=== PATIENT | female | born 1940 | race African-American/Black ===

== ENCOUNTER 2024-01-26 09:49 | Inpatient (IN) | payer OTHER ==
[~2024-01-26] VITALS: Ht 152.4 cm; Wt 59.0 kg
[2024-01-26 09:58] VITALS: BP 95/40; PULSE 66; RESP 20; TEMP 98; O2SAT 99
[2024-01-26 10:40] LABS: BASOPHILS # (AUTO) 0.1 K/uL (0.00-0.22); BASOPHILS % (AUTO) 1.1 % (0.0-2.0); EOSINOPHILS # (AUTO) 0.1 K/uL (0-0.4); EOSINOPHILS % (AUTO) 2.7 % (0.0-4.0); HEMATOCRIT 35.1 % (36-48); HEMOGLOBIN 11.7 g/dL (12.0-16.0); LYMPHOCYTES # (AUTO) 1.8 K/uL (2.5-16.5); LYMPHOCYTES % (AUTO) 33.6 % (20.5-51.1); MEAN CORPUSCULAR HEMOGLOBIN 29 pg (27-31); MEAN CORPUSCULAR HGB CONC 33 g/dL (33-37); MEAN CORPUSCULAR VOLUME 86.4 fL (80-94); MONOCYTES # (AUTO) 0.3 K/uL (0.8-1.0); NEUTROPHILS # (AUTO) 3.1 K/uL (1.8-7.7); NEUTROPHILS % (AUTO) 57.6 % (42.2-75.2); PLATELET COUNT (AUTO) 363 K/uL (140-450); RED BLOOD CELL COUNT(AUTO) 4.07 MIL/uL (4.20-5.40); RED CELL DISTRIBUTION WIDTH 14.4 % (11.6-13.7); WHITE BLOOD COUNT (AUTO) 5.5 K/uL (4.8-10.8)
[2024-01-26 10:47] LABS: CALCIUM 8.9 mg/dL (8.5-10.1); CARBON DIOXIDE 26.9 mmol/L (21-32); CHLORIDE 102 mmol/L (98-107); CREATININE 1.2 mg/dL (0.6-1.3); GLUCOSE 99 mg/dL (74-106); SODIUM SERUM 137 mmol/L (136-145); UREA NITROGEN, BLOOD 23 mg/dL (7-18)
[2024-01-26 10:48] LABS: POTASSIUM 2.9 mmol/L (3.5-5.1)
[2024-01-26] MEDS: POTASSIUM CHLORIDE 10 MEQ TABER PO ONE (10:58)
[2024-01-26] MEDS ORDERED: GABA300C (11:54)
[2024-01-26] MEDS ORDERED: AMLO-3 PO (11:54)
[2024-01-26] MEDS ORDERED: HYDR-3293 PO (11:54)
[2024-01-26] MEDS ORDERED: ACET-9525 PO (11:54)
[2024-01-26] MEDS ORDERED: APIX2.5 PO (11:54)
[2024-01-26] MEDS ORDERED: METO50TE63 PO (11:54)
[2024-01-26] MEDS ORDERED: MECL-231 PO (11:54)
[2024-01-26] MEDS ORDERED: TRAZ-471 PO (11:54)
[2024-01-26] MEDS ORDERED: FERR-15 PO (11:54)
[2024-01-26] MEDS ORDERED: PANT40EC56 PO (11:54)
[2024-01-26] MEDS ORDERED: POLYETHYLENE GLYCOL 17 GM/PKT PO PRN (12:20)
[2024-01-26] MEDS ORDERED: MELATONIN 3 MG TAB PO PRN (12:20)
[2024-01-26] MEDS ORDERED: HYDROcodone/APAP 5/325 MG 1 TAB TAB PO PRN (12:20)
[2024-01-26] MEDS ORDERED: ONDANSETRON 4 MG/2 ML VIAL IVP PRN (12:20)
[2024-01-26] MEDS ORDERED: MORPHINE SULFATE 2 MG/ML SYR IVP PRN (12:20)
[2024-01-26 13:00] VITALS: RESP 15; RESP 20; O2SAT 99
[2024-01-26 16:00] VITALS: BP 126/79; PULSE 60; RESP 15; TEMP 98.2; O2SAT 99
[2024-01-26 17:33] VITALS: PULSE 60
[2024-01-26 20:00] VITALS: BP 142/65; PULSE 59; PULSE 62; RESP 17; RESP 19; TEMP 98; O2SAT 98
[2024-01-27] VITALS (7 sets, daily range): BP systolic 105–169; BP diastolic 49–85; PULSE 51–70; RESP 16–19; TEMP 96.6–98.7; O2SAT 98–100
[2024-01-27] MEDS: POTASSIUM CHLORIDE 10 MEQ TABER PO PRN (05:49)
[2024-01-27 06:37] LABS: BASOPHILS # (AUTO) 0.1 K/uL (0.00-0.22); BASOPHILS % (AUTO) 0.9 % (0.0-2.0); EOSINOPHILS # (AUTO) 0.2 K/uL (0-0.4); HEMATOCRIT 33.3 % (36-48); HEMOGLOBIN 11.2 g/dL (12.0-16.0); LYMPHOCYTES # (AUTO) 2.4 K/uL (2.5-16.5); LYMPHOCYTES % (AUTO) 34.2 % (20.5-51.1); MEAN CORPUSCULAR HEMOGLOBIN 29 pg (27-31); MEAN CORPUSCULAR HGB CONC 34 g/dL (33-37); MONOCYTES # (AUTO) 0.4 K/uL (0.8-1.0); MONOCYTES % (AUTO) 5.1 % (1.7-9.3); NEUTROPHILS % (AUTO) 56.8 % (42.2-75.2); PLATELET COUNT (AUTO) 366 K/uL (140-450); RED BLOOD CELL COUNT(AUTO) 3.87 MIL/uL (4.20-5.40); RED CELL DISTRIBUTION WIDTH 14.4 % (11.6-13.7); WHITE BLOOD COUNT (AUTO) 7.1 K/uL (4.8-10.8)
[2024-01-27 07:24] LABS: ALANINE AMINOTRANSFERASE 19 U/L (12-78); ALKALINE PHOSPHATASE 64 U/L (50-136); ANION GAP 12.4 (8-16); ASPARTATE AMINOTRANSFERASE 16 U/L (15-37); CARBON DIOXIDE 24.9 mmol/L (21-32); CHLORIDE 102 mmol/L (98-107); CREATININE 0.9 mg/dL (0.6-1.3); GLUCOSE 95 mg/dL (74-106); MAGNESIUM 1.7 mg/dL (1.8-2.4); PHOSPHORUS 3.4 mg/dL (2.5-4.9); POTASSIUM 3.3 mmol/L (3.5-5.1); SODIUM SERUM 136 mmol/L (136-145); TOTAL BILIRUBIN 0.5 mg/dL (0.0-1.0); TOTAL PROTEIN, SERUM 7.1 g/dL (6.4-8.2); UREA NITROGEN, BLOOD 18 mg/dL (7-18)
[2024-01-27] MEDS: ECOTRIN 81 MG TABEC PO SCH (09:02)
[2024-01-27] MEDS: MAG SULF 2000 MG/WATER PREMIX 50 ML IV PRN (09:05)
[2024-01-27] MEDS: POTASSIUM CHLORIDE 10 MEQ TABER PO SCH (12:12)
[2024-01-27] MEDS: amLODIPine 5 MG TAB PO SCH (14:10)
[2024-01-27] MEDS ORDERED: APIXABAN 2.5 MG TAB PO SCH (21:00)
[2024-01-27] MEDS: traZODone 50 MG TAB PO SCH (21:03)
[2024-01-28] VITALS: BP 133/62; PULSE 73; RESP 16; TEMP 97.8; O2SAT 100
[2024-01-28] MEDS: ACETAMINOPHEN 325 MG TAB PO PRN (00:27)
[2024-01-28 04:00] VITALS: BP 138/64; PULSE 82; RESP 16; TEMP 97.6; O2SAT 99
[2024-01-28 06:23] LABS: BASOPHILS # (AUTO) 0.1 K/uL (0.00-0.22); BASOPHILS % (AUTO) 1.2 % (0.0-2.0); EOSINOPHILS # (AUTO) 0.1 K/uL (0-0.4); EOSINOPHILS % (AUTO) 2.4 % (0.0-4.0); HEMATOCRIT 34.1 % (36-48); HEMOGLOBIN 11.2 g/dL (12.0-16.0); LYMPHOCYTES % (AUTO) 38.4 % (20.5-51.1); MEAN CORPUSCULAR HEMOGLOBIN 28 pg (27-31); MEAN CORPUSCULAR HGB CONC 33 g/dL (33-37); MONOCYTES # (AUTO) 0.4 K/uL (0.8-1.0); MONOCYTES % (AUTO) 7.1 % (1.7-9.3); NEUTROPHILS # (AUTO) 2.6 K/uL (1.8-7.7); NEUTROPHILS % (AUTO) 50.9 % (42.2-75.2); PLATELET COUNT (AUTO) 350 K/uL (140-450); RED BLOOD CELL COUNT(AUTO) 3.96 MIL/uL (4.20-5.40); RED CELL DISTRIBUTION WIDTH 14.6 % (11.6-13.7); WHITE BLOOD COUNT (AUTO) 5.2 K/uL (4.8-10.8)
[2024-01-28 06:55] LABS: ALANINE AMINOTRANSFERASE 16 U/L (12-78); ALKALINE PHOSPHATASE 65 U/L (50-136); ANION GAP 11.9 (8-16); ASPARTATE AMINOTRANSFERASE 15 U/L (15-37); CALCIUM 8.9 mg/dL (8.5-10.1); CARBON DIOXIDE 25.2 mmol/L (21-32); CHLORIDE 103 mmol/L (98-107); CREATININE 0.9 mg/dL (0.6-1.3); GLUCOSE 88 mg/dL (74-106); POTASSIUM 4.1 mmol/L (3.5-5.1); SODIUM SERUM 136 mmol/L (136-145); TOTAL BILIRUBIN 0.6 mg/dL (0.0-1.0); TOTAL PROTEIN, SERUM 6.9 g/dL (6.4-8.2); UREA NITROGEN, BLOOD 12 mg/dL (7-18)
[2024-01-28 08:00] VITALS: BP 154/69; PULSE 78; RESP 18; TEMP 98.9; O2SAT 100
[2024-01-28] MEDS: PANTOPRAZOLE 40 MG TABEC PO SCH (08:35)
[2024-01-28] MEDS: LOSARTAN 50 MG TAB PO SCH (08:35)
[2024-01-28] MEDS ORDERED: LOSARTAN 50 MG TAB PO SCH (09:00)
[2024-01-28] MEDS ORDERED: LOSA-270 PO (11:46)
[2024-01-28 12:00] VITALS: BP 154/69; PULSE 78; RESP 18; TEMP 98.9; O2SAT 100
== END 2024-01-28 15:30 | DRG 206 ==
LOC: MED 09:49 → MMU 12:18 → MTU 13:09
PROVIDERS: ADMIT Family Medicine; ATTEND Family Medicine
DX: M94.0 Chondrocostal junction syndrome [Tietze] (principal); I48.20 Chronic atrial fibrillation, unspecified; I13.0 Hypertensive heart and chronic kidney disease with heart failure and stage 1 through stage 4 chronic kidney disease, or unspecified chronic kidney disease; I50.32 Chronic diastolic (congestive) heart failure; E87.6 Hypokalemia; F03.90 Unspecified dementia, unspecified severity, without behavioral disturbance, psychotic disturbance, mood disturbance, and anxiety; N18.9 Chronic kidney disease, unspecified; J45.909 Unspecified asthma, uncomplicated; G47.00 Insomnia, unspecified; T50.2X5A Adverse effect of carbonic-anhydrase inhibitors, benzothiadiazides and other diuretics, initial encounter; Z86.73 Personal history of transient ischemic attack (TIA), and cerebral infarction without residual deficits; Z79.01 Long term (current) use of anticoagulants; Z79.899 Other long term (current) drug therapy; Y92.89 Other specified places as the place of occurrence of the external cause
CPT/HCPCS: 36415; 71045; 71275; 80048; 80053; 83735; 84100; 84484; 85025; 85379; 87081; 93005; 97163-GP; 99285; J1644; J3475; Q0092; Q9967